=== PATIENT | male | born 1960 | race Asian ===

== ENCOUNTER 2020-09-30 15:45 | Emergency (ER) | payer BC ==
[~2020-09-30] VITALS: Ht 180.3 cm; Wt 78.0 kg
[~2020-09-30 15:45] MED LIST: ALLEGRA-D 1212 HOUR PO; CIPROFLOXACN250 MG PO; CIPROFLOXACN500 MG PO; LIPITOR10 MG PO; METOPROL TAR50 MG PO; METOPROLOL TART50 MG PO; ZPAK PO
[2020-09-30 17:30] LABS: HEMATOCRIT 38.1 % (39.0-50.0); HEMOGLOBIN 13.2 g/dl (14.0-18.0); IMMATURE GRANULOCYTES 0.2 % (0.0-5.0); MEAN CELL VOLUME 90.3 fL CALC (80.0-100.0); MEAN CORPUSCULAR HGB 31.3 pG CALC (26.0-32.0); MEAN CORPUSCULAR HGB CONC 34.6 g/dL CAL (32.0-36.0); NEUT# 4.23 thou/uL (1.82-7.42); RED BLOOD COUNT 4.22 mill/uL (4.70-6.10); RED CELL DISTRI WIDTH 11.8 % (11.5-15.5)
[2020-09-30 17:42] LABS: ALBUMIN 4.4 g/dL (3.2-5.0); ALKALINE PHOSPHATASE 73 u/l (38-126); ANION GAP 11 (6-22 (CALC)); BILIRUBIN, TOTAL 1.2 mg/dL (0.0-1.4); BUN 10 mg/dL (8-23); BUN/CREATININE RATIO 16 (12-20 (CALC)); CARBON DIOXIDE 26 mmol/l (22-30); CHLORIDE 96 mmol/l (95-108); CREATININE 0.7 mg/dL (0.7-1.3); GFR > 60 ML/MIN (>=60 (CALC)); GFR FOR AFR.AMER. > 60 ML/MIN (>=60 (CALC)); SGOT/AST 36 u/l (19-48); TOTAL PROTEIN 7.4 g/dL (6.3-8.2)
[2020-09-30 17:48] LABS: SODIUM 129 mmol/l (137-146)
[2020-09-30 17:58] LABS: URINE BILIRUBIN - DIPSTICK NEGATIVE (NEGATIVE); URINE BLOOD DIPSTICK NEGATIVE (NEGATIVE); URINE COLOR YELLOW; URINE GLUCOSE - DIPSTICK NEGATIVE (NEGATIVE); URINE KETONE TRACE mg/dL (NEGATIVE); URINE LEUK ESTERASE NEGATIVE (NEGATIVE); URINE NITRITE - DIPSTICK NEGATIVE (Negative); URINE PH 6.5 (4.5-8.0); URINE PROTEIN - DIPSTICK NEGATIVE (NEG-TRACE); URINE SPECIFIC GRAVITY 1.015; URINE UROBILINOGEN - DIPSTICK 0.2 E.U./dL (0.2)
[2020-09-30 18:16] VITALS: BP 189/91
== END 2020-09-30 19:00 | disposition home or self-care (01) | DRG 605 ==
LOC: ED 15:45
PROC: 0HQ0XZZ Repair Scalp Skin, External Approach (ICD-10-PCS; principal; 2020-09-30)
DX: S01.01XA Laceration without foreign body of scalp, initial encounter (principal); E87.1 Hypo-osmolality and hyponatremia; W07.XXXA Fall from chair, initial encounter

== ENCOUNTER 2020-10-10 08:23 | Emergency (ER) | payer BC ==
[~2020-10-10] VITALS: Ht 180.3 cm; Wt 77.0 kg
[2020-10-10] MEDS ORDERED: LOPRESSOR50 M1 PO (09:08)
[2020-10-10 09:22] VITALS: BP 160/89
== END 2020-10-10 09:22 | disposition home or self-care (01) | DRG 950 ==
LOC: ED 08:23
DX: S01.01XD Laceration without foreign body of scalp, subsequent encounter (principal); W19.XXXD Unspecified fall, subsequent encounter